=== PATIENT | male | born 1945 | race Asian ===

== ENCOUNTER → 2016-11-15 | Outpatient (CLI) | payer MEDICARE, OTHER ==
[~2016-11-15] MED LIST: ACET-2902 PO; ALBU8HFA IH; APIX2.5T PO; ATOR40TA28 PO; BECL8.7A5 IH; CARV25 PO; FURO20 PO; HYDR-309 PO; INSNOV SQ; IPRAHFA IH; MOM30 PO; MONT10TA21 PO; SLOWK8 PO; TERA1 PO; VITAD1000 PO; ZOLP5 PO
[2016-11-15 16:55] LABS: CALCIUM, TOTAL 8.8 mg/dL (8.8-10.5); CREATININE 2.91 mg/dL (0.60-1.30); POTASSIUM 4.9 mmol/L (3.5-5.1)
== END | disposition home or self-care (01) ==
LOC: LABPV 13:53
PROVIDERS: ATTEND Internal Medicine Nephrology
DX: I12.9 Hypertensive chronic kidney disease with stage 1 through stage 4 chronic kidney disease, or unspecified chronic kidney disease (principal); N18.1 Chronic kidney disease, stage 1; E11.29 Type 2 diabetes mellitus with other diabetic kidney complication; E78.5 Hyperlipidemia, unspecified; E66.9 Obesity, unspecified; R60.9 Edema, unspecified; E55.9 Vitamin D deficiency, unspecified
CPT/HCPCS: 82306; 82570; 83970; 84156

== ENCOUNTER → 2017-08-02 | Outpatient (CLI) | payer MEDICARE, OTHER ==
[2017-08-02 12:43] LABS: HEMATOCRIT 41.7 % (41-53); HEMOGLOBIN 13.9 g/dL (13.5-17.5)
[2017-08-02 12:59] LABS: ALBUMIN 2.6 g/dL (3.4-5.0); BILIRUBIN,TOTAL 1.3 mg/dL (0.1-1.0); CALCIUM, TOTAL 8.7 mg/dL (8.8-10.5); CHOL/HDL RATIO 1.5 (4.2-7.3); CREATININE 2.89 mg/dL (0.60-1.30); PHOSPHORUS 4.1 mg/dL (2.5-4.9); POTASSIUM 4.3 mmol/L (3.5-5.1); TOTAL PROTEIN, SERUM 7.4 g/dL (6.4-8.2)
[2017-08-02 13:09] LABS: HEMOGLOBIN A1C 6.6 % (4.5-6.2)
== END | disposition home or self-care (01) ==
LOC: LABPV 09:52
PROVIDERS: ATTEND Internal Medicine Nephrology
DX: E11.22 Type 2 diabetes mellitus with diabetic chronic kidney disease (principal); N18.1 Chronic kidney disease, stage 1; E78.5 Hyperlipidemia, unspecified
CPT/HCPCS: 83036; 83970; 84100; 85014; 85018

== ENCOUNTER → 2018-07-18 | Outpatient (CLI) | payer MEDICARE, OTHER ==
[~2018-07-18] VITALS: Ht 175.3 cm; Wt 152.3 kg
[~2018-07-18] MED LIST changes: +BUDE10.2 IH; +FURO40 PO; +LEVO100 PO; +LIDOCAINE 4% 50 ML SOLUTION TP ONE; +POTA8TAB4 PO
[2018-07-18 08:50] VITALS: BP 122/61
== END | disposition home or self-care (01) ==
LOC: HBOWC 07:14
PROVIDERS: ATTEND Emergency Medicine
DX: E11.622 Type 2 diabetes mellitus with other skin ulcer (principal); L97.822 Non-pressure chronic ulcer of other part of left lower leg with fat layer exposed; L97.812 Non-pressure chronic ulcer of other part of right lower leg with fat layer exposed; B35.3 Tinea pedis; L60.2 Onychogryphosis; E11.42 Type 2 diabetes mellitus with diabetic polyneuropathy; E11.22 Type 2 diabetes mellitus with diabetic chronic kidney disease; I12.9 Hypertensive chronic kidney disease with stage 1 through stage 4 chronic kidney disease, or unspecified chronic kidney disease; N18.1 Chronic kidney disease, stage 1; J44.9 Chronic obstructive pulmonary disease, unspecified; I48.91 Unspecified atrial fibrillation; E78.5 Hyperlipidemia, unspecified; E55.9 Vitamin D deficiency, unspecified; E66.01 Morbid (severe) obesity due to excess calories; G47.30 Sleep apnea, unspecified; Z79.01 Long term (current) use of anticoagulants; Z86.718 Personal history of other venous thrombosis and embolism; Z95.0 Presence of cardiac pacemaker
CPT/HCPCS: 11042; 11045

== ENCOUNTER 2018-09-22 17:46 | Emergency (ER) | payer MEDICARE, OTHER ==
[~2018-09-22] VITALS: Ht 177.8 cm; Wt 147.5 kg
[~2018-09-22 17:46] MED LIST changes: -ACET-2902 PO; -ALBU8HFA IH; -BECL8.7A5 IH; +EPINEPHrine 1:10,000 [1 MG/10 ML] SYRINGE IVP ONE; -HYDR-309 PO; -INSNOV SQ; +INSREG SQ; -IPRAHFA IH; -LIDOCAINE 4% 50 ML SOLUTION TP ONE; +LOSA50TA64 PO; -MOM30 PO; -SLOWK8 PO; -TERA1 PO; +TERA1CAP7 PO; -ZOLP5 PO
[2018-09-22] MEDS ORDERED: DOPAMINE HCL IV ONE (17:50)
[2018-09-22] MEDS ORDERED: SODIUM BICARBONATE [ADULT] 8.4% 50 MEQ/50 ML SYRINGE IVP ONE (17:50)
[2018-09-22] MEDS ORDERED: EPINEPHrine 1:10,000 [1 MG/10 ML] SYRINGE IVP ONE ×2 (17:50)
[2018-09-22] MEDS ORDERED: D5W IV ONE (17:50)
[2018-09-22 18:06] VITALS: BP 118/79
[2018-09-22 18:19] LABS: GLUCOSE,POINT OF CARE 189 MG/DL (70-110)
[2018-09-22 18:28] LABS: BASOPHILS % (AUTO) 1.3 % (0.0-2.0); EOSINOPHILS % (AUTO) 2.1 % (1.0-6.0); HEMATOCRIT 23.1 % (41-53); HEMOGLOBIN 7.5 g/dL (13.5-17.5); LYMPHOCYTES % (AUTO) 11.9 % (22.0-44.0); MEAN CORPUSCULAR HEMOGLOBIN 31.9 pg (26.0-34.0); MEAN CORPUSCULAR HGB CONC 32.3 G/dL (31.0-37.0); MEAN CORPUSCULAR VOLUME 99 fL (80-100); MONOCYTES # (AUTO) 2.6 K/uL (0.1-1.0); MONOCYTES % (AUTO) 15.3 % (2.0-9.0); NEUTROPHILS # (AUTO) 11.8 K/uL (1.8-7.7); NEUTROPHILS % (AUTO) 69.4 % (40.0-70.0); PLATELET COUNT (AUTO) 219 K/uL (150-450); RED BLOOD CELL COUNT(AUTO) 2.34 MIL/uL (4.50-5.90); RED CELL DISTRIBUTION WIDTH 17.5 % (11.5-14.5)
[2018-09-22] MEDS ORDERED: PROPOFOL 1000 MG/ISO-OSM 100 ML IV ONE (18:45)
[2018-09-22 19:02] LABS: INR 1.4 (0.9-1.1)
[2018-09-22 19:05] LABS: CALCIUM, TOTAL 7.7 mg/dL (8.8-10.5); CREATININE 2.81 mg/dL (0.60-1.30); POTASSIUM 4.2 mmol/L (3.5-5.1)
[2018-09-22 19:10] LABS: ALBUMIN 1.5 g/dL (3.4-5.0); BILIRUBIN,TOTAL 2.8 mg/dL (0.1-1.0); TOTAL PROTEIN, SERUM 6.7 g/dL (6.4-8.2)
== END 2018-09-22 21:34 | disposition expired ==
LOC: EMS 17:49
DX: K92.2 Gastrointestinal hemorrhage, unspecified (principal); I46.9 Cardiac arrest, cause unspecified; E11.9 Type 2 diabetes mellitus without complications; E78.00 Pure hypercholesterolemia, unspecified; I11.9 Hypertensive heart disease without heart failure; Z79.01 Long term (current) use of anticoagulants; Z79.899 Other long term (current) drug therapy
CPT/HCPCS: 31500; 36430; 71045; 80053; 82550; 82962; 83880; 84484; 85025; 85610; 85730; 86850; 86900; 86901; 86920; 92950; 93005; 99291; J0171; J1265; J2704; J3490; P9016; 94002